=== PATIENT | female | born 1950 | race Caucasian/White ===

== ENCOUNTER → 2021-01-31 10:32 | Outpatient (CLI) | payer SELFPAY, OTHER ==
--- NOTE | 2021-01-31 11:00 | ECHOD_ITS ---
Version 2 Reason For Study: Afib, Aflutter Procedure This was a 2D Doppler, Color Flow transthoracic echocardiogram. Exam performed in department. Left Ventricle Normal LV size. Left ventricular systolic function is normal. The estimated ejection fraction is 60 %. Stage 1 diastolic dysfunction. No regional wall motion abnormalities noted. Right Ventricle Normal RV size. Normal systolic function. Atria Normal left atrium. Mitral Valve Mild mitral valve prolapse. Mild mitral valve prolapse, anterior leaflet. Mild mitral valve prolapse, posterior leaflet. Mild (1+) eccentric mitral valve insufficiency. Tricuspid Valve Normal tricuspid valve. Mild (1+) tricuspid valve insufficiency. Pulmonary artery systolic pressure is 28 mmHg. Aortic Valve Normal aortic valve. Trisinus/trileaflet aortic valve. Pulmonic Valve Normal pulmonic valve. Great Vessels Normal aortic root. The pulmonary artery is normal size. Pericardium/Pleural No pericardial effusion. Medication Performed a rapid injection of agitated mix of 9 cc saline and 1cc air to assess for atrial septal defect. MMode/2D Measurements & Calculations LVIDd: 4.7 cm IVSd: 1.1 cm Ao root diam: 3.6 cm LVIDs: 2.6 cm LVPWd: 1.1 cm RVDd: 2.7 cm FS: 44.3 % LAV(MOD-bp): 49.9 ml LVAd ap4: 20.8 cm2 SV(MOD-sp4): 27.8 ml LAV(MOD-bp) Indexed: 30.1 ml/m2 LVLd ap4: 7.4 cm LAV(MOD-sp2): 48.5 ml EDV(MOD-sp4): 48.3 ml LAV(MOD-sp4): 41.9 ml EDV(sp4-el): 49.8 ml LVAs ap4: 11.5 cm2 LVLs ap4: 5.7 cm ESV(MOD-sp4): 20.6 ml ESV(sp4-el): 19.5 ml EF(MOD-sp4): 57.5 % EF(sp4-el): 60.9 % SV(sp4-el): 30.3 ml LA A4 area: 16.9 cm2 LA dimension(2D): 3.6 cm RA A4 area: 14.6 cm2 Doppler Measurements & Calculations MV E max enrique: 34.0 cm/sec Lat Peak E' Enrique: 6.6 cm/sec Med Peak E' Enrique: 3.2 cm/sec MV A max enrique: 83.4 cm/sec E/E' lat: 5.1 E/E' med: 10.7 MV E/A: 0.41 Ao V2 max: 122.9 cm/sec LV V1 max: 83.0 cm/sec PA V2 max: 62.6 cm/sec Ao max P.0 mmHg LV V1 max P.8 mmHg Ao V2 mean: 86.8 cm/sec Ao mean P.3 mmHg Ao V2 VTI: 25.9 cm TR max enrique: 240.2 cm/sec TR max P.1 mmHg ECHO/Echo Complete Interpretation Summary Normal LV size. Left ventricular systolic function is normal. The estimated ejection fraction is 60 %. Mild mitral valve prolapse. Mild (1+) eccentric mitral valve insufficiency. Stage 1 diastolic dysfunction. Ordering Physician: Mikel Barboza Referring Physician: Katie Tafoya Performed By: Lyudmila Reeves, NICKY, RVT
[2021-01-31 11:50] LABS: AST(SGOT) 14 U/L (15-37); Alanine Aminotransfer ALT/SGPT 19 U/L (13-56); Albumin, Serum 4.1 g/dL (3.2-5.0); Alkaline Phosphatase 138 U/L (45-117); Bilirubin, Direct 0.12 mg/dL (0.00-0.30); Cholesterol 270 mg/dL (200); Globulin 3.9 g/dL (2.2-4.2); High Density Lipoprotein 62 mg/dL; Triglycerides 110 mg/dL; Very Low Density Lipoprotein 22 mg/dL (5-40)
== END ==
PROVIDERS: PCP Nurse Practitioner Family; Referring Provider Internal Medicine Cardiovascular Disease; Visit Provider Internal Medicine Cardiovascular Disease
DX: I48.0 Paroxysmal atrial fibrillation (principal); I10 Essential (primary) hypertension; E78.5 Hyperlipidemia, unspecified
CPT/HCPCS: 36415; 80061; 80076; 93306; A4216

== ENCOUNTER → 2021-03-26 11:00 | Outpatient (CLI) | payer OTHER, SELFPAY ==
[2021-03-26 13:37] LABS: AST(SGOT) 13 U/L (15-37); Alanine Aminotransfer ALT/SGPT 16 U/L (13-56); Albumin, Serum 3.8 g/dL (3.2-5.0); Alkaline Phosphatase 142 U/L (45-117); Bilirubin, Direct 0.16 mg/dL (0.00-0.30); Cholesterol 188 mg/dL (200); Globulin 3.9 g/dL (2.2-4.2); High Density Lipoprotein 53 mg/dL; Protein, Total 7.7 g/dL (6.4-8.2); Triglycerides 115 mg/dL; Very Low Density Lipoprotein 23 mg/dL (5-40)
== END ==
PROVIDERS: PCP Nurse Practitioner Family; Referring Provider Internal Medicine Cardiovascular Disease; Visit Provider Internal Medicine Cardiovascular Disease
DX: E78.5 Hyperlipidemia, unspecified (principal)
CPT/HCPCS: 36415; 80061; 80076

== ENCOUNTER → 2021-08-27 | Outpatient (CLI) | payer OTHER, SELFPAY ==
[2021-08-27 10:55] LABS: AST(SGOT) 17 U/L (15-37); Alanine Aminotransfer ALT/SGPT 25 U/L (13-56); Albumin, Serum 3.8 g/dL (3.2-5.0); Alkaline Phosphatase 132 U/L (45-117); Cholesterol 171 mg/dL (200); Globulin 3.2 g/dL (2.2-4.2); High Density Lipoprotein 60 mg/dL; Triglycerides 88 mg/dL; Very Low Density Lipoprotein 18 mg/dL (5-40)
== END | disposition home or self-care (01) ==
LOC: LAB 09:39
PROVIDERS: PCP Nurse Practitioner Family; Visit Provider Internal Medicine Cardiovascular Disease
DX: E78.00 Pure hypercholesterolemia, unspecified (principal); E78.5 Hyperlipidemia, unspecified
CPT/HCPCS: 36415; 80061; 80076

== ENCOUNTER → 2022-02-25 | Outpatient (CLI) | payer OTHER, SELFPAY ==
[2022-02-25 09:45] LABS: AST(SGOT) 22 U/L (15-37); Alanine Aminotransfer ALT/SGPT 39 U/L (13-56); Albumin, Serum 3.8 g/dL (3.2-5.0); Alkaline Phosphatase 147 U/L (45-117); Bilirubin, Direct 0.23 mg/dL (0.00-0.30); Cholesterol 178 mg/dL (200); Globulin 3.3 g/dL (2.2-4.2); High Density Lipoprotein 65 mg/dL; Protein, Total 7.1 g/dL (6.4-8.2); Triglycerides 102 mg/dL; Very Low Density Lipoprotein 20 mg/dL (5-40)
== END | disposition home or self-care (01) ==
LOC: LAB 08:36
PROVIDERS: PCP Nurse Practitioner Family; Referring Provider Internal Medicine Cardiovascular Disease; Visit Provider Internal Medicine Cardiovascular Disease
DX: E78.00 Pure hypercholesterolemia, unspecified (principal)
CPT/HCPCS: 36415; 80061; 80076

== ENCOUNTER → 2022-08-23 | Outpatient (CLI) | payer OTHER, SELFPAY ==
[2022-08-23 10:11] LABS: AST(SGOT) 26 U/L (15-37); Alanine Aminotransfer ALT/SGPT 36 U/L (13-56); Albumin, Serum 3.9 g/dL (3.2-5.0); Alkaline Phosphatase 142 U/L (45-117); Bilirubin, Direct 0.18 mg/dL (0.00-0.30); Cholesterol 170 mg/dL (200); Globulin 3.3 g/dL (2.2-4.2); High Density Lipoprotein 61 mg/dL; Protein, Total 7.2 g/dL (6.4-8.2); Triglycerides 60 mg/dL; Very Low Density Lipoprotein 12 mg/dL (5-40)
== END | disposition home or self-care (01) ==
PROVIDERS: Nurse Practitioner Gerontology; PCP Nurse Practitioner Family; Referring Provider Nurse Practitioner Adult Health; Visit Provider Nurse Practitioner Adult Health
DX: E78.00 Pure hypercholesterolemia, unspecified (principal)
CPT/HCPCS: 36415; 80061; 80076

== ENCOUNTER → 2023-02-06 | Outpatient (CLI) | payer OTHER, SELFPAY ==
[2023-02-06 11:38] LABS: AST(SGOT) 16 U/L (15-37); Alanine Aminotransfer ALT/SGPT 26 U/L (13-56); Albumin, Serum 3.9 g/dL (3.2-5.0); Alkaline Phosphatase 148 U/L (45-117); Bilirubin, Direct 0.25 mg/dL (0.00-0.30); Cholesterol 169 mg/dL (200); Globulin 3.4 g/dL (2.2-4.2); High Density Lipoprotein 60 mg/dL; Protein, Total 7.3 g/dL (6.4-8.2); Triglycerides 50 mg/dL; Very Low Density Lipoprotein 10 mg/dL (5-40)
[2023-02-06 12:21] LABS: Anion Gap 5 (5-15); BUN 15 mg/dL (7-18); BUN/Creat Ratio 21.1 RATIO (10-20); Calcium,Total 9.6 mg/dL (8.5-10.1); Chloride 107 mmol/L (98-107); Creatinine, Serum 0.71 mg/dL (0.55-1.02); EST Glomerular Filtration Rate 86 mL/min (>60); Est Glom Filt Rate - Afr Amer 104 mL/min (>60); Glucose 87 mg/dL (74-106); Potassium 4.1 mmol/L (3.5-5.1); Sodium Level 138 mmol/L (136-145)
== END | disposition home or self-care (01) ==
LOC: LAB 09:53
PROVIDERS: PCP Nurse Practitioner Family; Referring Provider Nurse Practitioner Gerontology; Visit Provider Nurse Practitioner Gerontology
DX: I10 Essential (primary) hypertension (principal); E78.00 Pure hypercholesterolemia, unspecified
CPT/HCPCS: 36415; 80048; 80061; 80076

== ENCOUNTER → 2023-09-08 | Outpatient (CLI) | payer OTHER, SELFPAY ==
[2023-09-08 10:39] LABS: AST(SGOT) 20 U/L (15-37); Alanine Aminotransfer ALT/SGPT 24 U/L (13-56); Albumin, Serum 3.8 g/dL (3.2-5.0); Alkaline Phosphatase 132 U/L (45-117); Bilirubin, Direct 0.24 mg/dL (0.00-0.30); Cholesterol 176 mg/dL (200); Globulin 3.6 g/dL (2.2-4.2); High Density Lipoprotein 67 mg/dL; Protein, Total 7.4 g/dL (6.4-8.2); Triglycerides 95 mg/dL; Very Low Density Lipoprotein 19 mg/dL (5-40)
== END | disposition home or self-care (01) ==
PROVIDERS: PCP Nurse Practitioner Family; Referring Provider Nurse Practitioner Gerontology; Visit Provider Nurse Practitioner Gerontology
DX: E78.00 Pure hypercholesterolemia, unspecified (principal)
CPT/HCPCS: 36415; 80061; 80076

== ENCOUNTER → 2024-02-05 | Outpatient (CLI) | payer OTHER, SELFPAY ==
[2024-02-05 12:16] LABS: AST(SGOT) 10 U/L (15-37); Alanine Aminotransfer ALT/SGPT 16 U/L (13-56); Albumin, Serum 3.7 g/dL (3.2-5.0); Alkaline Phosphatase 119 U/L (45-117); Bilirubin, Direct 0.28 mg/dL (0.00-0.30); Cholesterol 166 mg/dL (200); Globulin 3.3 g/dL (2.2-4.2); High Density Lipoprotein 62 mg/dL; Triglycerides 57 mg/dL; Very Low Density Lipoprotein 11 mg/dL (5-40)
== END | disposition home or self-care (01) ==
LOC: LAB 10:48
PROVIDERS: PCP Nurse Practitioner Family; Referring Provider Nurse Practitioner Gerontology; Visit Provider Nurse Practitioner Gerontology
DX: E78.00 Pure hypercholesterolemia, unspecified (principal)
CPT/HCPCS: 36415; 80061; 80076

== ENCOUNTER → 2024-08-18 | Outpatient (CLI) | payer OTHER, SELFPAY ==
[2024-08-18 10:35] LABS: AST(SGOT) 18 U/L (<=31); Alanine Aminotransfer ALT/SGPT 13 U/L (<=34); Albumin, Serum 4.3 g/dL (3.4-4.8); Alkaline Phosphatase 123 U/L (35-104); Bilirubin, Direct 0.35 mg/dL (0.00-0.30); Cholesterol 229 mg/dL (<=200); Globulin 2.8 g/dL (2.2-4.2); High Density Lipoprotein 64 mg/dL; Low Density Lipoprotein Calc. 148 mg/dL; Protein, Total 7.1 g/dL (5.9-8.4); Triglycerides 85 mg/dL; Very Low Density Lipoprotein 17 mg/dL (5-40)
== END | disposition home or self-care (01) ==
PROVIDERS: Referring Provider Nurse Practitioner Gerontology; Visit Provider Nurse Practitioner Gerontology
DX: E78.00 Pure hypercholesterolemia, unspecified (principal)
CPT/HCPCS: 36415; 80061; 80076

== ENCOUNTER → 2025-01-31 | Outpatient (CLI) | payer OTHER, SELFPAY ==
--- OUTSIDE RECORDS SUMMARY | 2024-12-13 17:16 | XMS RPT_ITS ---
Author Name Auto Generated Organization [facility] Care Team Providers Care Driver Operator Name Role Phone BEN HUNTER Attending Unavailable BEN HUNTER Primary Care Unavailable BEN HUNTER Admitting Unavailable PROVIDER, EXTERNAL Admitting Unavailable PROVIDER, EXTERNAL Attending Unavailable PROVIDER, EXTERNAL Primary Care Unavailable PROBLEMS No Problem Records Found PROCEDURES No Procedure Records Found RESULTS HEMOGLOBIN A1C (POM) Collected: 12/13/2024 5:10 PM S tatus: F Source: [facility] TYPE CODE TESTS RESULT OUT OF RANGE REFERENCE UNITS LAB HEMOGLOBIN A1C(LOINC) HEMOGLOBIN A1C 5.3 0.0 - 6.5 % LAB AVG GLUCOSE(LOINC) AVG GLUCOSE 105.4 High 0.0 - 0.0 mg/dL Result Comment: BLDoHEMOGLOB IN A1C REFERENCE RANGESBLDo Suggested Diagnosis HbA1c(%) HbA1C (mmol/mol Diabetic >/=6.5 >/=48 Prediabetes 5.7 - 6.4 39 - 47 Normal <5.7 <39 Performed By: #### [id number] ## ## [facility],[address] [place] [id number] LIPID PROFILE Collected: 12/13/2024 5:10 PM Status: F Source: [facility] TYPE CODE TESTS RESULT OUT OF RANGE REFERENCE UNITS LAB LIPID PROFILE(LOINC) LIPID PROFILE Result Comment: LIPID PROFIL E LAB TRIGLYCERIDE(DHIRAJ NC) TRIGLYCERIDE 171 High 0 - 150 mg/dl LAB CHOLESTEROL(LOIN C) CHOLESTEROL 177 0 - 240 mg/dl LAB HDL(LOINC) HDL 56 40 - 60 mg/dl LAB CHOL/HDL(LOINC) CHOL/HDL 3.2 0.0 - 5.0 LAB LDL(LOINC) LDL 87 0 - 129 mg/dl Performed By: #### [id number] ## ## [place] [id number] BMP WITH EGFR Collected: 09/22/2024 2:02 PM Status: F Source: [facility] TYPE CODE TESTS RESULT OUT OF RANGE REFERENCE UNITS LAB BMP with eGFR(LOINC) BMP with eGFR Result Comment: BASIC METABO LIC PANEL LAB SODIUM(LOINC) SODIUM 140 136 - 145 mmol/l LAB POTASSIUM(LOINC ) POTASSIUM 3.7 3.5 - 5.1 mmol/L LAB CHLORIDE(LOINC) CHLORIDE 104 98 - 107 mmol/L LAB CO2(LOINC) CO2 26.6 21.0 - 32.0 mmol/L LAB GLUCOSE(LOINC) GLUCOSE 125 High 74 - 106 mg/dl LAB BUN(LOINC) BUN 12 7 - 18 mg/dl LAB CREATININE(LOIN C) CREATININE 0.74 0.55 - 1.02 mg/dl LAB CALCIUM(LOINC) CALCIUM 9.3 8.5 - 10.1 mg/dl LAB ANION GAP(LOINC) ANION GAP 13 10 - 20 mmol/L LAB AGE(LOINC) AGE 74 years LAB eGFR(LOINC) eGFR >60 60 - 999 ML/MINUTE LAB eGFR(AA)(LOINC) eGFR(AA) >60 60 - 999 ML/MIN [place] Result Comment: ACCORDING TO THE NATIONAL KIDNEY DISEASE EDUCATION PROGRAM(NKDE), A NORMAL eGFR IS A VALUE GREATER THAN OR EQUAL TO 60 ML/MIN/1.73 SQ METERS. CHRONIC KIDNEY DISEASE: <60mL/MIN/1.73 SQ METERS KIDNEY FAILURE: <15mL/MIN/1.73 SQ METERS THIS TEST SHOULD ONLY BE USED FOR PATIENTS 18 YEARS OF AGE AND OLDER. Performed By: #### [id number] ## ## [facility],[address] [place], [place] [id number] LIPID PROFILE Collected: 09/22/2024 2:02 PM Status: F Source: [facility] TYPE CODE TESTS RESULT OUT OF RANGE REFERENCE UNITS LAB LIPID PROFILE(LOINC) LIPID PROFILE Result Comment: LIPID PROFI LE LAB TRIGLYCERIDE(DHIRAJ NC) TRIGLYCERIDE 102 0 - 150 mg/dl LAB CHOLESTEROL(LOIN C) CHOLESTEROL 171 0 - 240 mg/dl LAB HDL(LOINC) HDL 57 40 - 60 mg/dl LAB CHOL/HDL(LOINC) CHOL/HDL 3.0 0.0 - 5.0 LAB LDL(LOINC) LDL 94 0 - 129 mg/dl Performed By: #### [id number] ## ## [facility],[address] [place] [id number] ALLERGIES No Allergies Records Found ENCOUNTERS ADMIT/DISCHARGE ACCOUNT NUMBER ADMITTING ENCOUNTER CLASS LOCATION SOURCE 12/13/2024/ 5 [id number] PROVIDER, EXTERNAL Ambulatory Building:[facility] 09/22/2024/ 5 [id number] BEN HUNTER Ambulatory Building:[facility] PAYERS ENCOUNTER GUARANTOR PAYER SUBSCRIBER SOURCE 09/22/2024 GIANCARLO FARNSWORTH: [id number] [address] [address]Vti: () Primary Insurance:[employer] OUTPATIENTPolicy Number: [id number] Date:Plan Name:Ingird FARNSWORTH: [id number] [address] [address] [facility]
--- NOTE | 2025-01-31 08:57 | ECHOD_ITS ---
Reason For Study Reason For Study: MVP Procedure This was a 2D Doppler, Color Flow transthoracic echocardiogram. Exam performed in department. Left Ventricle Normal left ventricle. The left ventricular ejection fraction is 55 %. Stage 1 diastolic dysfunction. No regional wall motion abnormalities noted. Right Ventricle Normal RV size. Normal systolic function. Atria Normal left atrium. Normal right atrium. Mitral Valve Mild mitral valve prolapse. Mild-Moderate (1-2+) eccentric mitral valve insufficiency. Tricuspid Valve Normal tricuspid valve. Mild (1+) tricuspid valve insufficiency. Pulmonary artery systolic pressure is 28 mmHg. Aortic Valve Trisinus/trileaflet aortic valve. Mild (1+) aortic valve insufficiency. Pulmonic Valve Normal pulmonic valve. Great Vessels Normal aortic root. The pulmonary artery is normal size. Inferior vena cava collapse with respiration. Pericardium/Pleural No pericardial effusion. MMode/2D Measurements & Calculations LVIDd: 5.0 cm IVSd: 1.0 cm LVOT diam: 2.0 cm LVIDs: 3.0 cm LVPWd: 1.2 cm LVOT area: 3.3 cm2 RVDd: 2.6 cm FS: 40.4 % Ao root diam: 3.8 cm LAV(MOD-bp): 76.9 ml LVAd ap4: 21.2 cm2 LAV(MOD-bp) Indexed: 46.5 ml/m2 LVLd ap4: 6.5 cm LAV(MOD-sp2): 52.2 ml EDV(MOD-sp4): 59.3 ml LAV(MOD-sp4): 86.8 ml EDV(sp4-el): 59.0 ml LVAs ap4: 13.4 cm2 LVLs ap4: 5.8 cm ESV(MOD-sp4): 28.1 ml ESV(sp4-el): 26.3 ml EF(MOD-sp4): 52.7 % EF(sp4-el): 55.4 % SV(MOD-sp4): 31.3 ml SV(sp4-el): 32.7 ml LA A4 area: 26.1 cm2 SI(MOD-sp4): 18.9 ml/m2 LA dimension(2D): 4.4 cm RA A4 area: 13.2 cm2 Time Measurements MV dec time: 0.21 sec Doppler Measurements & Calculations MV E max enrique: 35.5 cm/sec Lat Peak E' Enrique: 7.9 cm/sec Med Peak E' Enrique: 3.6 cm/sec MV A max enrique: 61.3 cm/sec E/E' lat: 4.5 E/E' med: 9.8 MV E/A: 0.58 MV V2 max: 84.2 cm/sec Ao V2 max: 125.8 cm/sec MV max P.8 mmHg MV dec slope: 166.0 cm/sec2 Ao max P.3 mmHg MV V2 mean: 38.6 cm/sec Ao V2 mean: 82.6 cm/sec MV mean P.75 mmHg Ao mean P.2 mmHg MV V2 VTI: 27.0 cm Ao V2 VTI: 29.8 cm AV (velocity ratio): 0.66 MVA(VTI): 2.4 cm2 LIZ(I,D): 2.2 cm2 LIZ(V,D): 2.1 cm2 AI max enrique: 323.1 cm/sec LV V1 max: 79.9 cm/sec SV(LVOT): 65.0 ml AI max P.8 mmHg LV V1 max P.6 mmHg LV V1 mean P.5 mmHg AI dec slope: 100.2 cm/sec2 LV V1 mean: 57.3 cm/sec AI P1/2t: 944.6 msec LV V1 VTI: 19.8 cm PA V2 max: 61.8 cm/sec TR max enrique: 242.5 cm/sec PA V2 mean: 40.7 cm/sec TR max P.5 mmHg ECHO/Echo Complete Interpretation Summary The left ventricular ejection fraction is 55 %. Stage 1 diastolic dysfunction. Mild mitral valve prolapse. Mild-Moderate (1-2+) eccentric mitral valve insufficiency. Mild (1+) tricuspid valve insufficiency. Ordering Physician: Lisa Fung Referring Physician: Lisa Fung Performed By: Pili Veras RCS
== END | disposition home or self-care (01) ==
PROVIDERS: PCP Nurse Practitioner Family; Referring Provider Nurse Practitioner Gerontology; Visit Provider Nurse Practitioner Gerontology
DX: I34.1 Nonrheumatic mitral (valve) prolapse (principal)
CPT/HCPCS: 93306

== ENCOUNTER → 2025-02-18 | Outpatient (CLI) | payer OTHER, SELFPAY ==
[2025-02-18 09:47] LABS: AST(SGOT) 19 U/L (<=31); Alanine Aminotransfer ALT/SGPT 16 U/L (<=34); Albumin, Serum 4.3 g/dL (3.4-4.8); Alkaline Phosphatase 111 U/L (35-104); Bilirubin, Direct 0.44 mg/dL (0.00-0.30); Cholesterol 171 mg/dL (<=200); Globulin 2.6 g/dL (2.2-4.2); Low Density Lipoprotein Calc. 95 mg/dL; Triglycerides 90 mg/dL; Very Low Density Lipoprotein 18 mg/dL (5-40); cholesterol:hdl ratio screen 2.93
== END | disposition home or self-care (01) ==
PROVIDERS: PCP Nurse Practitioner Family; Referring Provider Nurse Practitioner Gerontology; Visit Provider Nurse Practitioner Gerontology
DX: E78.5 Hyperlipidemia, unspecified (principal)
CPT/HCPCS: 36415; 80061; 80076